=== PATIENT | male | born 1965 | race African-American/Black ===

== ENCOUNTER 2019-03-22 07:54 | Day surgery (SDC) | payer BC ==
[~2019-03-22] VITALS: Ht 175.3 cm; Wt 90.2 kg
[2019-03-22 08:22] VITALS: BP 139/88; PULSE 99; TEMP 98.2
[2019-03-22 09:35] VITALS: BP 128/93; PULSE 88; TEMP 97.6
--- NOTE | 2019-03-22 09:35 | NUR ---
Pt to [facility] via cart from [facility]. Pt drowsy, but awake. Denies pain or nausea. Pt ambulates to recliner with stand by assistance. Warm blanket provided. Juice and jello given per pt request. in room. Will continue to monitor. Call light within reach.
[2019-03-22 09:50] VITALS: BP 133/86; PULSE 83
--- NOTE | 2019-03-22 09:50 | NUR ---
Pt continues to rest. Denies pain or nausea. Call light within reach.
[2019-03-22 10:05] VITALS: BP 116/84; PULSE 82
--- NOTE | 2019-03-22 10:05 | NUR ---
Pt continues to rest. Denies needs. Tolerating food and fluids without difficulties. Call light within reach.
[2019-03-22 10:20] VITALS: BP 117/79; PULSE 77
--- NOTE | 2019-03-22 10:20 | NUR ---
Pt continues to rest. Tolerating fluids and food without difficulties. Will continue to monitor. Call light within reach.
[2019-03-22 10:50] VITALS: BP 130/86; PULSE 80
--- NOTE | 2019-03-22 10:50 | NUR ---
Pt continues to rest. Denies needs. Call light within reach.
--- NOTE | 2019-03-22 11:00 | NUR ---
Discharge instructions reviewed. Pt voices understanding. IV site discontinued with all parts intact. Pt up to dress. Call light within reach.
--- NOTE | 2019-03-22 11:10 | NUR ---
Pt escorted to private car via wheel chair. Pt accompanied home by his .
== END 2019-03-22 11:10 | disposition home or self-care (01) ==
LOC: SDCO 07:54
DX: K92.1 Melena (principal); K64.1 Second degree hemorrhoids
CPT/HCPCS: OP; J2250; J3010; J7030